=== PATIENT | female | born 1950 ===

== ENCOUNTER 2022-06-28 09:43 | Day surgery (SDC) | payer OTHER ==
[2022-06-26 15:11] VITALS: BMI 18.3
[~2022-06-28 09:43] MED LIST: LACTATED RINGERS 1,000 ML IV SCH
[2022-06-28 10:44] VITALS: RESP 16; TEMP 97.5
[2022-06-28] MEDS ORDERED: LIDOCAINE 2% INJ 20 MG/ML (2 ML VIAL) ONE (11:08)
[2022-06-28] MEDS ORDERED: PROPOFOL 10 MG/ML 20 ML VIAL IV ONE (11:08)
--- NOTE | 2022-06-28 11:22 | P.PCN ---
Date of Procedure: 06/28/22 Procedure(s) Performed: BRIEF HISTORY: Patient is a 71-year-old, pleasant, female scheduled for an upper endoscopy as a part of evaluation of epigastric pain for the last several months duration. She was recently started omeprazole 20 mg daily and symptoms are. PROCEDURE PERFORMED: Esophagogastroduodenoscopy with biopsy. PREOPERATIVE DIAGNOSIS: Chronic epigastric pain. IV sedation per anesthesia. PROCEDURE: After informed consent was obtained, the patient was brought into the endoscopy unit. IV sedation was administered by Anesthesia under continuous monitoring. Initially the Olympus GIF-140 video endoscope was inserted into the mouth. Esophagus intubated without any difficulty. It was gradually advanced into the stomach and duodenum and carefully examined. The bulb and the second part of the duodenum appeared normal. The scope at this time was withdrawn to the stomach, adequately insufflated with air, and upon careful examination, mucosa of the antrum, had multiple scattered erosions and biopsies were done from this area. Mucosa of the body, cardia and the fundus appeared normal. The scope was then withdrawn into the esophagus. Small hiatal hernia noted. The GE junction was located at 36 cm from the incisors. The esophagus appeared normal. There were no erosions or ulcerations seen and biopsies were done from the distal esophagus and the patient tolerated the procedure well. IMPRESSION: 1. Mild antral erosive gastritis. 2. Small hiatal hernia but no evidence of esophagitis or Price's esophagus. RECOMMENDATIONS: The findings of this examination were discussed with the patient as well as a family. She was advised to follow with the biopsy results. In the meantime she will continue with omeprazole 20 mg daily and follow antireflux measures.
[2022-06-28 12:01] VITALS: BP 143/68; PULSE 64
== END 2022-06-28 12:14 | disposition home or self-care (01) ==
LOC: ORWHC2ENDO 09:43
PROVIDERS: ATTEND Internal Medicine Gastroenterology
DX: K29.50 Unspecified chronic gastritis without bleeding (principal); K44.9 Diaphragmatic hernia without obstruction or gangrene; G89.29 Other chronic pain; F17.200 Nicotine dependence, unspecified, uncomplicated; Z79.899 Other long term (current) drug therapy
CPT/HCPCS: 88305; 43239; J2704; J2001